=== PATIENT | female | born 1970 | race African-American/Black ===

== ENCOUNTER 2016-06-22 12:10 | Emergency (ER) | payer MEDICAID ==
[2016-06-22 12:23] VITALS: TEMP 97.5; BMI 44.3
[2016-06-22] MEDS ORDERED: NS 1,000 ML IV ONE (12:34)
[2016-06-22] MEDS ORDERED: SODIUM CHLORIDE 0.9% 3 ML FLUSH FLUSH PRN (12:34)
[2016-06-22 12:57] LABS: AUTOMATED BASOPHIL 0.7 % (0-2); AUTOMATED EOSINOPHIL 2.4 % (0-5); AUTOMATED MONOCYTE 7.7 % (3-10); AUTOMATED NEUTROPHIL 61.2 % (45-76); MPV 9.3 fL (7.4-10.4)
[2016-06-22] MEDS ORDERED: REGULAR INSULIN 100 UNITS/ML - 3 ML VIAL IV ONE ×2 (13:02→14:40)
--- NOTE | 2016-06-22 13:05 | EDPRACDOC ---
- General Information Information Source: Patient Home Medications: Home Medications Bupropion HCl [Wellbutrin Sr] 300 mg PO QAM 05/23/15 Cetirizine HCl [Zyrtec] 10 mg PO DAILY 05/23/15 Escitalopram Oxalate [Lexapro] 20 mg PO DAILY 05/23/15 Hydrochlorothiazide 25 mg PO DAILY 05/23/15 Metformin HCl 1,000 mg PO BID 05/23/15 Montelukast Sodium [Singulair] 10 mg PO DAILY 05/23/15 Pravastatin [Pravachol] 40 mg PO HS 05/23/15 Acetaminophen Ex Str Tablet [TYLENOL EXTRA STRENGTH Tablet] 1,000 mg PO Q6H PRN 06/22/16 Albuterol Sulfate [Proair Hfa] 2 puff INH Q4-6H PRN 06/22/16 Aspirin/Acetaminophen/Caffeine [Excedrin Migraine Tablet (250/250/65mg)] 1 - 2 tab PO Q4H PRN 06/22/16 Biotin [Meribin] 10 mg PO DAILY 06/22/16 Diclofenac Sodium [Voltaren 1% Topical Gel] 0 gm TOP QID PRN 06/22/16 Ferrous Sulfate [Feosol] 325 mg PO DAILY 06/22/16 Fluticasone/Salmeterol [Advair 250-50] 1 puff INH BID 06/22/16 Glipizide 5 mg PO DAILY #30 tablet 06/22/16 Naproxen [Naprosyn] 500 mg PO BID 06/22/16 Ondansetron [Zofran Odt] 4 mg PO Q6H #20 tab.rapdis 06/22/16 Allergies/Adverse Reactions: Allergies Allergy/AdvReac Type Severity Reaction Status Date / Time morphine Allergy Difficulty Verified 06/22/16 12:23 Breathing - History of Present Illness Onset: 2-3 DAYS Complains Of: Reports: High Blood Sugar, Nausea, Polyuria, Polydipsia, Other ( HEADACHE WEAKNESS) Relevant History: Reports: NIDDM Medication Use: Reports: Reduced (HAS BEEN OUT OF GLIPIZIDE FOR ALMOST 1 MONTH) Vomiting - TNTC: No Abdominal Pain Location: Reports: Diffuse Abdominal Pain Quality: Reports: Aching ED Past Medical History - History Reviewed Yes Nurses notes reviewed and agree except as marked Travel Outside of [place] in the Last 3 Months?: No - Patient Medical History Cardiac History: Reports: Hypertension, Hypercholesterolemia Respiratory History: Reports: Asthma Psychological History: Reports: Depression Systemic History: Reports: Diabetes Surgical History: Reports: Hysterectomy, Tonsillectomy/Adnoidectomy - Social Medical History Smoking Status: Former smoker ETOH: None Substance Abuse: None Lives With: Spouse Lives In: Home EDM Review of Systems - Review of Systems ROS Negative Except as Marked: Yes All systems reviewed and were negative except as marked Constitutional: Weakness. negative: Chills, Fever, Fatigue, Loss of Appetite Eyes: No Symptoms Reported. negative: Redness, Blurred Vision, Double Vision, Discharge, Pain, Light Sensitive, Photophobia Ears: No Symptoms Reported. negative: Pain, Hearing Loss, Drainage, Ear Pulling Throat: No Symptoms Reported. negative: Pain, Swelling Nose: No Symptoms Reported. negative: Congestion, Bleeding, Discharge, Injection, Swelling, Deformity, Ecchymosis, Tender, Abrasion, Laceration Mouth: Dry Mouth. negative: Pain, Drooling Respiratory: No Symptoms Reported. negative: Cough, Brassy Cough, Barky Cough, Shortness of Breath, Wheezing, Hemoptysis Cardiovascular: No Symptoms Reported. negative: Chest Pain, Palpitations, Syncope, Edema, Orthopnea, PND, Skin Mottling, Cyanosis Gastrointestinal: Nausea, Pain (GENERALIZED ACHY). negative: Constipation, Diarrhea, Formula Intolerance, Melena, Vomiting Genitourinary: Frequency, Nocturia. negative: Bleeding, Dysuria, Discharge, Hematuria, , Testicular Pain Neurological: Weakness. negative: Dizziness, Gait Difficulty, Headache, Numbness, Seizure, Speech Difficulty Musculoskeletal: No Symptoms Reported. negative: Neck, Chestwall, Ribs, Back, Shoulder, Arm, Elbow, Forearm, Wrist, Hand, Pelvis, Hip, Femur, Knee, Leg, Ankle , Foot Integumentary: No Symptoms Reported. negative: Itching, Rash, Bruising, Wound Allergic/Immunologic: No Symptoms Reported. negative: Hives, Itching Hematologic: No Symptoms Reported. negative: Lymphadenopathy, Easy Bruising, Easy Bleeding Endocrine: No Symptoms Reported. negative: Weight Gain, Weight Loss Psychiatric: No Symptoms Reported. negative: Anxiety, Depression, Hallucinations, Insomnia, Suicidal - Physical Exam Constitutional: Alert (Awake), No apparent distress Oriented to: Time, Person, Place Last recorded Vital Signs: Last Vital Signs Temp 97.5 F 06/22/16 12:21 Pulse 85 06/22/16 12:40 Resp 18 06/22/16 12:40 BP 127/64 06/22/16 12:40 Pulse Ox 98 06/22/16 12:40 Oxygen Pulse Oxygen Saturation 98 O2 Device Room Air Oxygen Flow Rate Fraction of Inspired Oxygen ( FIO2) - HEENT Head: Normal ( normocephalic) Eye Exam: Normal (PERRL, EOMI, Sclera white) Oropharynx: Normal (Pharynx:Moist without exudate,Gums-no swelling) Tympanic Membrane: Normal ENT EAC: Normal TMJ: Normal Nose: No Symptoms Reported (septum midline) Neck: Normal (FROM, trachea at midline) - Respiratory/Cardiovascular Respiratory: Normal - CTA (BBS clear to auscultation without adventitious sounds ) Cardiovascular: Normal (RRR without murmur, gallop or rub) - GI Auscultation: Normal (NABS) Palpation: Normal (Soft,No rebound or guarding, non distended) Tenderness: Non tender Perez's Sign: Negative - Musculoskeletal Back: Normal (Non-Tender) Extremities: Normal (Normal tone, Pulses 2+ No cyanosis or edema, FROM) - Integumentary Skin: Normal, Warm, Dry Lymphatics: Normal (no adenopathy) - Neurologic Memory Impaired: Normal Motor Function: Normal (Normal tone, Pulses 2+ No cyanosis or edema, FROM) Cranial Nerve: Normal (CN II-X11 intact sensation, strength 5/5) Cerebellar: Normal Mood Description: Normal Perception: Normal - Differential Diagnosis Dehydration, Diabetic Ketoacidosis, Electrolyte Abnormality, Hyperglycemia, UTI - Re-evaluation Re-evaluation 1 Re-evaluation Time: 15:15 (PT STATES FEELING BETTER, ASKING FOR SOMETHING TO EAT MULTIPLE DIFFERENT TIMES) - Results 06/22/16 12:34 06/22/16 12:34 WBC 9.0 xk/uL (3.8-10.8) 06/22/16 12:34 RBC 5.26 xM/uL (4.20-5.40) 06/22/16 12:34 Hgb 13.0 g/dL (12.0-16.0) 06/22/16 12:34 Hct 39.7 % (36-47) 06/22/16 12:34 MCV 76 fL (81-99) L 06/22/16 12:34 MCH 24.7 pg (27-32) L 06/22/16 12:34 MCHC 32.7 g/dl (33-36) L 06/22/16 12:34 RDW 13.7 % (11.5-14.5) 06/22/16 12:34 Plt Count 262 xk/uL (130-400) 06/22/16 12:34 MPV 9.3 fL (7.4-10.4) 06/22/16 12:34 Neut % (Auto) 61.2 % (45-76) 06/22/16 12:34 Lymph % (Auto) 28.0 % (17-44) 06/22/16 12:34 [place] % (Auto) 7.7 % (3-10) 06/22/16 12:34 Eos % (Auto) 2.4 % (0-5) 06/22/16 12:34 Baso % (Auto) 0.7 % (0-2) 06/22/16 12:34 Absolute Neuts (auto) 5.49 xk/uL (1.7-8.2) 06/22/16 12:34 Absolute Lymphs (auto) 2.52 xk/uL (0.65-4.75) 06/22/16 12:34 Lab Results 06/22/16 12:34 WBC 9.0 RBC 5.26 Hgb 13.0 Hct 39.7 MCV 76 L MCH 24.7 L MCHC 32.7 L RDW 13.7 Plt Count 262 MPV 9.3 Neut % (Auto) 61.2 Lymph % (Auto) 28.0 [place] % (Auto) 7.7 Eos % (Auto) 2.4 Baso % (Auto) 0.7 Absolute Neuts (auto) 5.49 Absolute Lymphs (auto) 2.52 - EKG EKG #1 EKG Time: 12:52 -: Yes EKG interpreted by ut Rate: bpm: 86 [place]: Normal Rhythm: NSR Block: None Hypertrophy: None ST: Normal - Diagnostic Imaging CXR Image interpreted by: Radiologist IMPRESSION: No acute cardiopulmonary abnormality seen. Decision Time to Discharge: 15:15 - Departure Disposition: Home Condition: Stable Final Diagnosis: Hyperglycemia, MILD HYPOVOLEMIA Instructions: Diabetic Hyperglycemia (ED) Education/Counseling Given To: Patient, Family Member Education/Counseling Given Regarding: Diagnosis, Treatment, Prognosis, Follow Up Referrals: Ebonie Watson MD [Primary Care Provider] - One Week Prescriptions: Glipizide 5 mg PO DAILY #30 tablet Ondansetron [Zofran Odt] 4 mg PO Q6H #20 tab.rapdis Additional Instructions: RETURN FOR WORSE OR DIFFERENT SYMPTOMS. DIET AND EXERCISE AND TAKE MEDS PRESCRIBED.
[2016-06-22 13:09] LABS: BLOOD UREA NITROGEN 18 MG/DL (7-17); CALCIUM 9.2 MG/DL (8.4-10.2); CALCULATED OSMOLALITY 271 MOs/Kg (270-290); CHLORIDE 93 mEq/L (98-107); SODIUM LEVEL 130 mEq/L (137-146); TOTAL PROTEIN 7.2 G/DL (6.3-8.2)
[2016-06-22 13:11] LABS: PARTIAL THROMB. TIME 23.6 SEC (22-35); PT-INR 0.9
--- NOTE | 2016-06-22 13:19 | DIRPT ---
CLINICAL DATA: Weakness. EXAM: PORTABLE CHEST 1 VIEW COMPARISON: August 17, 2015. FINDINGS: The heart size and mediastinal contours are within normal limits. Both lungs are clear. No pneumothorax or pleural effusion is noted. The visualized skeletal structures are unremarkable. IMPRESSION: No acute cardiopulmonary abnormality seen. Electronically Signed By: Patrick Baldwin Jr, M.D. On: 06/22/2016 13:17
[2016-06-22 13:23] LABS: GLUCOSE 429 MG/DL (70-99)
[2016-06-22] MEDS: NS 1,000 ML IV SCH ×2 (13:38→14:27)
[2016-06-22 13:58] LABS: VENOUS BEb 3.2 (+/- 2); VENOUS TCO2 29.9 MMOL/L (23-27)
[2016-06-22 15:14] LABS: LEUKOCYTES/URINE NEG (NEGATIVE); NITRITE/URINE NEG (NEGATIVE); RBC/URINE 0-2 (0-5); URINE OCCULT BLOOD NEG (NEG/TRACE); WBC/URINE 0-2 (0-5)
[2016-06-22 15:51] VITALS: BP 119/68; PULSE 73
[2016-06-22] MEDS ORDERED: SODIUM CHLORIDE 0.9% 3 ML FLUSH FLUSH SCH (18:00)
== END 2016-06-22 15:50 | disposition home or self-care (01) ==
LOC: ED 12:10
DX: E11.65 Type 2 diabetes mellitus with hyperglycemia (principal); E86.1 Hypovolemia
CPT/HCPCS: 36415; 71010; 80053; 81001; 82803; 82962; 83605; 83690; 84484; 85025; 85610; 85730; 93005; 96361; 96374; 96376; 99283; J3490